=== PATIENT | female | born 1980 | race African-American/Black ===

== ENCOUNTER 2025-06-21 07:44 | Emergency (ER) | payer OTHER, SELFPAY ==
[2025-06-21 07:45] VITALS: BMI 36.6
[2025-06-21 07:50] VITALS: BP 142/89; PULSE 87; RESP 18; TEMP 36.7; O2SAT 100
--- NOTE | 2025-06-21 07:55 | XR_ITS ---
Examination: Abdomen AP single view Technique: AP portable supine abdomen, single view Exam date and time: June 21, 2025 0803 hours INDICATIONS: Abdominal pain and constipation beginning 5 days ago. FINDINGS: Moderate stool in the right colon Surgical clips upper right abdomen Nonobstructive bowel gas pattern No free air IMPRESSION: Nonobstructive bowel gas pattern
--- NOTE | 2025-06-21 07:57 | PD.EDABDPN ---
ED Abdominal Pain RME/HPI General Chief Complaint: Abdominal Pain Stated complaint: NO BM X6DAYS, RECTAL PAIN Time seen by provider: 06/21/25 07:50 Arrival date/time: 06/21/25 07:44 44-year-old female with no known medical history presents to the emergency room with a chief complaint of rectal pain after having constipation for the last 6 days. Source: patient Mode of arrival: ambulatory Limitations: no limitations Related Data Previous Rx's ?Medication ?Instructions ?Recorded ibuprofen 600 mg tablet 600 mg PO Q8H PRN fever or pain 11/06/21 #30 tabs hydrocodone 5 mg-acetaminophen 325 1 tab PO BID PRN pain #6 tabs 04/29/23 mg tablet ibuprofen 800 mg tablet 800 mg PO TID PRN pain #30 tabs 04/29/23 Allergies Allergy/AdvReac Type Severity Reaction Status Date / Time coconut Allergy Severe Vomiting Verified 06/21/25 07:47 Review of Systems Review of Systems Systems Reviewed: All systems reviewed, normal except as documented Constitutional Constitutional: Reports system reviewed and no additional complaints, except as documented, Denies fatigue, Denies fever(s), Denies headache(s) and Denies weakness Eyes Eyes: Reports system reviewed and no additional complaints, except as documented, Denies blurry vision and Denies change in vision ENT Ears, Nose, Mouth, and Throat: Reports system reviewed and no additional complaints, except as documented, Denies otalgia, Denies headache(s), Denies nasal congestion, Denies throat swelling and Denies vertigo Cardiovascular Cardiovascular: Reports system reviewed and no additional complaints, except as documented, Denies chest pain, Denies dyspnea and Denies dyspnea on exertion Respiratory Respiratory: Reports system reviewed and no additional complaints, except as documented, Denies chest congestion, Denies cough, Denies dyspnea, Denies dyspnea on exertion and Denies wheezing Gastrointestinal Gastrointestinal: Reports system reviewed and no additional complaints, except as documented, Denies abdominal pain, Denies cramping, Denies nausea and Denies vomiting Genitourinary Genitourinary: Reports system reviewed and no additional complaints, except as documented Musculoskeletal Musculoskeletal: Reports system reviewed and no additional complaints, except as documented and Denies back pain Integumentary/Breasts Skin/Breast: Reports system reviewed and no additional complaints, except as documented and Denies wounds Neurologic Neurologic: Reports system reviewed and no additional complaints, except as documented, Denies confusion, Denies headache(s), Denies lack of coordination, Denies vertigo and Denies weakness Psychiatric Psychiatric: Reports system reviewed and no additional complaints, except as documented, Denies anxiety, Denies confusion, Denies depression, Denies paranoia, Denies suicidal ideation and Denies tactile hallucinations Endocrine Endocrine: Reports system reviewed and no additional complaints, except as documented and Denies fatigue Hematologic/Lymphatic Hematologic/Lymphatic: Reports system reviewed and no additional complaints, except as documented and Denies lymphadenopathy Allergic/Immunologic Allergic/Immunologic: Reports system reviewed and no additional complaints, except as documented, Denies throat swelling, Denies urticaria and Denies wheezing ED Exam General Limitations: Present no limitations General appearance: Present alert and in no apparent distress Head Head exam: Present atraumatic Eye Eye exam: Present normal appearance, PERRL and EOMI ENT ENT exam: Present normal exam, normal oropharynx and mucous membranes moist Neck Neck exam: Present normal inspection, full ROM and trachea midline Chest Chest inspection: Present normal inspection and symmetric chest wall rise Respiratory Respiratory exam: Present normal lung sounds bilaterally Cardiovascular Cardiovascular exam: Present regular rate, normal rhythm and normal heart sounds Abdominal Exam Abdominal exam: Present soft and normal bowel sounds; Absent distention, tenderness, guarding or rebound Extremities Exam Extremities exam: Present normal inspection and full ROM Back Exam Back exam: Present normal inspection and full ROM Neurological Exam Neurological exam: Present alert, oriented X3 and CN II-XII intact Psychiatric Psychiatric exam: Present normal affect and normal mood Skin Skin exam: Present warm, dry, intact and normal color Course Quality Measures none Orders Category Date Time Status Fleet [Enema Administration] NOW Care 06/21/25 07:55 Completed XR abdomen 1V Stat Exams 06/21/25 07:55 Completed Vital Signs Vital signs: Vital Signs Temperature 98.0 F 06/21/25 07:50 Pulse Rate 87 06/21/25 07:50 Respiratory Rate 18 06/21/25 07:50 Blood Pressure 142/89 H 06/21/25 07:50 Pulse Oximetry (%) 100 06/21/25 07:50 Oxygen Delivery Method Room Air 06/21/25 07:50 Abdominal Pain MDM MDM Narrative MDM Narrative:: 44-year-old female with no known medical history presents to the emergency room with a chief complaint of rectal pain after having constipation for the last 6 days. Patient is hemodynamically stable and in no apparent distress Physical examination shows a soft nontender abdomen. The patient denies any right lower quadrant or right upper quadrant abdominal tenderness and states her pain is rectal pain. An enema was given and the patient was able to have a bowel movement with significant improvement to her symptoms Patient was discharged and educated to follow-up with primary care provider in the next 24 to 48 hours and return to the emergency room for any evidence of worsening signs or symptoms Patient data External records reviewed:: [facility] previous records Clinical information provided by:: patient Social determinants that could affect healthcare access:: none Patient has the following chronic illnesses:: No chronic illness How is presenting disease/condition affected by chronic disease/condition?: no chronic disease Evaluation data The following diagnostics were reviewed and interpreted by me:: lab results and radiology exam(s) Lab and/or radiology exams considered but not ordered:: Labs and radiology exams considered and ordered Interpretation Summary: X-ray abdomen-moderate amount of stool throughout the colon Medications / Prescriptions Medications or Prescriptions considered but not ordered:: No medication given Medication administrations:: No medication given Consultations Consultation(s) initiated? (list below): No Diagnosis Differential diagnosis abdominal pain: abdominal pain, constipation and gastroenteritis Most likely diagnosis given after review of the tests above:: Constipation Admission Indicated Admission indicated?: not indicated Admission Request Was there a request for admission?: No Disposition Plan Disposition Plan: Discharge Discharge Attestation Discharge Attestation: The patient and all family members were given an opportunity to ask questions and understood the discharge instructions. Discharge instructions specifically effects, indications for sooner follow up or return to the emergency department, and the expected course of current diagnosis. Patient condition: Stable Discharge Plan Plan Patient Disposition: HOME (Self Care) Discharge Disposition comment: Stable Prescriptions/Referrals Prescriptions/Med Rec: No Action ibuprofen 600 mg tablet 600 mg PO Q8H PRN (Reason: fever or pain) Qty: 30 0RF ibuprofen 800 mg tablet 800 mg PO TID PRN (Reason: pain) Qty: 30 0RF hydrocodone-acetaminophen 5-325 mg tablet 1 tab PO BID MDD 10 PRN (Reason: pain) Qty: 6 0RF Referrals: No Primary/Family,Physician [Primary Care Provider] - In 1 week Problem List Clinical Impression: Constipation Patient/Caregiver Discharge Instructions Education Materials: Treating Constipation, Eating a High-Fiber Diet, ED Constipation (Adult) Additional Instructions: Please follow-up with your primary care provider in the next 24 to 48 hours For any evidence of worsening signs or symptoms return to the emergency room immediately Print Language: Azeri Stand Alone Forms: [employer] Award Info., Work/School Release, Patient Portal Info Letter PA/BADGER DISTILLER OPERATOR Supervising Physician PA/BADGER DISTILLER OPERATOR Supervising Physician: Dr. Palafox
[2025-06-21 11:00] VITALS: BP 136/82; PULSE 76; RESP 18; TEMP 36.6; O2SAT 100
== END 2025-06-21 11:10 | disposition home or self-care (01) ==
PROVIDERS: Emergency Provider Emergency Medicine
DX: K59.00 Constipation, unspecified (principal)
CPT/HCPCS: 74018; 99283